=== PATIENT | female | born 1995 | race Caucasian/White ===

== ENCOUNTER 2017-10-04 10:31 | Emergency (ER) | payer MEDICAID ==
[2017-10-04] MEDS ORDERED: Acetaminophen TAB* 325 MG PO ONE (11:05)
--- NOTE | 2017-10-04 11:49 | RAD ---
Indication: Swelling and bruising at the LEFT foot following stubbing injury 2 days ago. Comparison: No relevant prior exams available on the [facility] for comparison. Technique: AP, lateral, and oblique views LEFT foot. Report: Small nondisplaced intra-articular fracture at the lateral base of the fifth middle phalanx. 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 Os tibiale externum accessory ossicle noted. Normal articular alignment and preserved joint spaces. Mild soft tissue swelling at the forefoot most prominent over the dorsal aspect. IMPRESSION: Small nondisplaced intra-articular fracture at the lateral base of the fifth middle phalanx.
--- NOTE | 2017-10-04 12:56 | ED ---
Casimiro Jansen Stephanie, scribed for Katya Delarosa MD on 10/04/17 at 1121 . Lower Extremity - HPI Summary HPI Summary: The pt is a 22 y/o F presenting to the ED with c/o pain over the 5th toe on the L foot that began on 10/02/17 s/p stubbing her toe without shoes, on a wooden platform at home. Symptoms include radiating pain down the L lateral side of her L foot and L 5th digit toe swelling and bruising. The pt states she took ibuprofen for swelling this morning at 05:30 before work with some relief of pain. The pt denies CP, SOB and N/V, abd pain. Pt states she takes control and is not . - History of Current Complaint Chief Complaint: EDExtremityLower Stated Complaint: LT FOOT INJURY Time Seen by Provider: 10/04/17 10:51 Hx Obtained From: Patient Mechanism Of Injury: Other - stubbing it against a platform Onset of Pain: Post Accident Onset/Duration: Days - 2 Severity Initially: Moderate Severity Currently: Moderate Pain Intensity: 6 Pain Scale Used: 0-10 Numeric Timing: Constant Location: Is Discrete @ - L foot and left toe Character Of Pain: Sharp Associated Signs And Symptoms: Positive: Swelling, Bruising Aggravating Factor(s): Ambulation Alleviating Factor(s): Nothing Able to Bear Weight: Yes - Allergies/Home Medications Allergies/Adverse Reactions: Allergies Allergy/AdvReac Type Severity Reaction Status Date / Time No Known Allergies Allergy Verified 09/06/16 12:11 PMH/Surg Hx/FS Hx/Imm Hx Endocrine/Hematology History: Reports: Hx Thyroid Disease - hypothyroid, Other Endocrine/Hematological Disorders - PCOS Denies: Hx Diabetes - Metformin for PCOS Cardiovascular History: Denies: Hx Hypertension, Hx Pacemaker/ICD Respiratory History: Denies: Hx Asthma GI History: Reports: Hx Gastroesophageal Reflux Disease Sensory History: Denies: Hx Contacts or Glasses, Hx Hearing Aid Opthamlomology History: Denies: Hx Contacts or Glasses Psychiatric History: Denies: Hx Panic Disorder - Surgical History Surgery Procedure, Year, and Place: 1997 TEAR DUCT SURGERY, [facility]. 2011 EXCISION OF PILONIODAL CYST, [facility]. 2011 TONSILLECTOMY, [facility] Hx Anesthesia Reactions: No Infectious Disease History: Yes Infectious Disease History: Denies: Traveled Outside the [place] in Last 30 Days - Family History Known Family History: Positive: Hypertension, Other - thyroid cancer, breast cancer - Social History Occupation: Employed Full-time Lives: With Family Alcohol Use: None Hx Substance Use: No Substance Use Type: Reports: None Hx Tobacco Use: No Smoking Status (MU): Never Smoked Tobacco Have You Smoked in the Last Year: No Review of Systems Negative: Fever Negative: Chest Pain Negative: Shortness Of Breath Negative: Vomiting, Nausea Positive: Other - 5th digit pain on the L foot, L lateral foot bruising and swelling Positive: Bruising Neurological: Negative Psychological: Normal All Other Systems Reviewed And Are Negative: Yes Physical Exam - Summary Physical Exam Summary: Appearance: well-appearing, moderate pain distress, obese Skin: Warm, color reflects adequate perfusion, bruising left foot and left 5th toe Head: Normal Head/Face inspection Eyes: Conjunctiva clear ENT: Normal inspection Neck: Supple, no nodes, no JVD. Respiratory: Lungs clear, Normal breath sounds, no respiratory distress Cardio: RRR, No murmur, pulses normal, brisk capillary refill Musculoskeletal: dark blood blister that is 0.5 cm on dorsum of the 5th toe and distal to the toe nail, no subungual hematoma, diffuse swelling of 5th toe, ecchymosis at the MTP of the 5th toe, that extends from the dorsum to the plantar surface. Tenderness on palpation to the 5th metatarsal, no bony tenderness of the ankle. ROM intact, sensation intact. No calf tenderness. Psychological: Normal Triage Information Reviewed: Yes Vital Signs On Initial Exam: Initial Vitals Temp Pulse Resp BP Pulse Ox 97.8 F 91 16 148/94 97 10/04/17 10:36 10/04/17 10:36 10/04/17 10:36 10/04/17 10:36 10/04/17 10:36 Vital Signs Reviewed: Yes Diagnostics - Vital Signs Vital Signs Temp Pulse Resp BP Pulse Ox 10/04/17 10:36 97.8 F 91 16 148/94 97 - Laboratory Lab Statement: Any lab studies that have been ordered have been reviewed, and results considered in the medical decision making process. - Radiology Foot XRay Radiology Interpretation Completed By: Radiologist - Small nondisplaced intra- articular fracture at the lateral base of the fifth middle phalanx. ED physician has reviewed this report. Re-Evaluation - Re-Evaluation First Eval Re-Evaluation Time: 12:34 Change: Improved - The pt states her pain is controlled. ED physician discussed plan of discharge with the pt and she understands. Lower Extremity Course/Dx - Course Course Of Treatment: The injured toe was wrapped with romario tape and the pt was given a post-op shoe to wear until seen by orthopedist. ED physician informed the pt to follow up with orthopedist in 2-7 days and to take ibuprofen for pain when needed. - Diagnoses Differential Diagnosis/HQI/PQRI: Positive: Contusion, Dislocation, Fracture ( Closed) Provider Diagnoses: Fractured toe Discharge - Sign-Out/Discharge Documenting (check all that apply): Discharge - Discharge Plan Condition: Stable Disposition: HOME Patient Education Materials: Toe Fracture (ED) Forms: *Work Release Referrals: Cyndi Martínez MD [Primary Care Provider] - Arsh Murillo MD [Medical Doctor] - 2 Days Additional Instructions: We have given you a copy of your XRay and report. Romario tape your 4th and 5th toes for 4-6 weeks. Wear the post-op shoe until seen by orthopedist. Follow up with orthopedist. Take ibuprofen when needed for pain. RETURN TO THE ER FOR ANY NEW OR WORSENING SYMPTOMS. - Billing Disposition and Condition Condition: STABLE Disposition: HOME The documentation as recorded by the Casimiro walton Stephanie accurately reflects the service I personally performed and the decisions made by , Katya Delarosa MD.
[2017-10-04 13:12] VITALS: BP 137/87
== END 2017-10-04 13:11 | disposition home or self-care (01) ==
LOC: ED 10:31
DX: S92.505A Nondisplaced unspecified fracture of left lesser toe(s), initial encounter for closed fracture (principal); W22.09XA Striking against other stationary object, initial encounter; Y92.009 Unspecified place in unspecified non-institutional (private) residence as the place of occurrence of the external cause; E03.9 Hypothyroidism, unspecified
CPT/HCPCS: 99282; A9270-GY

== ENCOUNTER 2019-03-25 07:14 | Emergency (ER) | payer BC, OTHER ==
[2019-03-25] MEDS ORDERED: NS 0.9% 1000 ML** 1,000 ML IV ONE (07:49)
[2019-03-25 08:07] LABS: ABS Eosinophils 0.1 10^3/ul (0-0.6); ABS Monocytes 0.6 10^3/ul (0-0.8); Eosinophil % 0.8 %; Hematocrit 38 % (35-47); Hemoglobin 13.1 g/dL (12.0-16.0); Lymphocyte % 44.1 %; Mean Corpuscular HGB Conc 34 g/dL (31-36); Mean Corpuscular Hemoglobin 29 pg (27-31); Mean Corpuscular Volume 84 fL (80-97); Mean Platelet Volume 8.5 fL (7.4-10.4); Nucleated Red Blood Cells % 0.1; Platelet Count 268 10^3/uL (150-450); Red Blood Count 4.51 10^6 /uL (3.70-4.87); Red Cell Distribution Width 13 % (10-15); White Blood Count 6.7 10^3/uL (3.5-10.8)
--- NOTE | 2019-03-25 08:11 | ED ---
GI/ HPI - HPI Summary HPI Summary: 23-year-old female presents with right-sided abdominal pain for the past week. She admits to some nausea but no vomiting. Has had a decreased appetite. States that she started having rectal bleeding for the past couple days. She admits to dizziness. She never had this before. No family history of UC or Crohn's. No fevers. Has had appendix removed. No diarrhea constipation. States that every time she has a bowel movement she has large amount of blood in the toilet. It is bright red blood. She admits to some urinary hesitancy. - History of Current Complaint Chief Complaint: EDGeneral Time Seen by Provider: 03/25/19 07:36 Stated Complaint: ABD PAIN PER PT Pain Intensity: 7 - Additional Pertinent History Primary Care Physician: CHRISTOPHER - Allergy/Home Medications Allergies/Adverse Reactions: Allergies Allergy/AdvReac Type Severity Reaction Status Date / Time No Known Allergies Allergy Verified 03/25/19 07:20 Home Medications: Home Medications Cyanocobalamin INJ * [Vitamin B12 INJ *] 1 dose IM MONTHLY 03/25/19 [History Confirmed 03/25/19] Levothyroxine TAB* [Synthroid 125 MCG TAB*] 1 tab PO QAM 03/25/19 [History Confirmed 03/25/19] Multivitamins/Minerals TAB* [Theragran/minerals TAB*] 1 tab PO DAILY 03/25/19 [ History Confirmed 03/25/19] metFORMIN* [Glucophage 500 MG TAB *] 500 mg PO DAILY 03/25/19 [History Confirmed 03/25/19] PMH/Surg Hx/FS Hx/Imm Hx Endocrine/Hematology History: Reports: Hx Thyroid Disease - hypothyroid, Other Endocrine/Hematological Disorders - PCOS Denies: Hx Diabetes - Metformin for PCOS Cardiovascular History: Denies: Hx Hypertension, Hx Pacemaker/ICD Respiratory History: Denies: Hx Asthma GI History: Reports: Hx Gastroesophageal Reflux Disease History: Reports: Hx Renal Disease - CURRENT UTI Sensory History: Denies: Hx Contacts or Glasses, Hx Hearing Aid Opthamlomology History: Denies: Hx Contacts or Glasses Neurological History: Reports: Hx Headaches - PAST WEEK USES OTC TYLENOL Psychiatric History: Denies: Hx Panic Disorder - Surgical History Surgery Procedure, Year, and Place: 1997 TEAR DUCT SURGERY, [facility]. 2011 EXCISION OF PILONIODAL CYST, [facility]. 2012 TONSILLECTOMY, [facility] Hx Anesthesia Reactions: No Infectious Disease History: No Infectious Disease History: Denies: Traveled Outside the [place] in Last 30 Days - Family History Known Family History: Positive: Hypertension, Other - thyroid cancer, breast cancer - Social History Alcohol Use: None Hx Substance Use: No Substance Use Type: Reports: None Hx Tobacco Use: No Smoking Status (MU): Never Smoked Tobacco Have You Smoked in the Last Year: No Review of Systems Negative: Fever Negative: Chest Pain Negative: Shortness Of Breath Positive: Abdominal Pain, Nausea, Other - rectal blood Positive: Weakness All Other Systems Reviewed And Are Negative: Yes Physical Exam Triage Information Reviewed: Yes Vital Signs On Initial Exam: Initial Vitals Temp Pulse Resp BP Pulse Ox 98.6 F 88 16 166/104 98 03/25/19 07:16 03/25/19 07:16 03/25/19 07:16 03/25/19 07:16 03/25/19 07:16 Vital Signs Reviewed: Yes Appearance: Positive: Well-Appearing Skin: Positive: Warm, Dry Head/Face: Positive: Normal Head/Face Inspection Eyes: Positive: Normal, Conjunctiva Clear ENT: Positive: Pharynx normal Respiratory/Lung Sounds: Positive: Clear to Auscultation, Breath Sounds Present Cardiovascular: Positive: Normal, RRR Abdomen Description: Positive: Soft, Other: - tenderness in RLQ and RUQ, hemorrhoids present, Bowel Sounds: Positive: Present Musculoskeletal: Positive: Normal Neurological: Positive: Normal Psychiatric: Positive: Normal Diagnostics - Vital Signs Vital Signs Temp Pulse Resp BP Pulse Ox 03/25/19 07:16 98.6 F 88 16 166/104 98 - Laboratory Result Diagrams: 03/25/19 07:56 03/25/19 07:56 Lab Statement: Any lab studies that have been ordered have been reviewed, and results considered in the medical decision making process. - CT abd CT Interpretation Completed By: Radiologist Summary of CT Findings: IMPRESSION: No evidence of bowel obstruction. Findings consistent with mesenteric adenitis. Appendix is not visualized. - Ultrasound No standard instances Ultrasound Interpretation Completed By: Radiologist Summary of Ultrasound Findings: IMPRESSION: UNREMARKABLE GALLBLADDER WITH NO INTRA OR EXTRAHEPATIC BILIARY DUCTAL DILATATION Re-Evaluation - Re-Evaluation First Eval Comment: discussed ultrasound results, will get CT GIGU Course/Dx - Course Course Of Treatment: 23-year-old female presents with right-sided abdominal pain for the past week. She admits to some nausea but no vomiting. Has had a decreased appetite. States that she started having rectal bleeding for the past couple days. She admits to dizziness. She never had this before. No family history of UC or Crohn's. No fevers. Has had appendix removed. No diarrhea constipation. States that every time she has a bowel movement she has large amount of blood in the toilet. It is bright red blood. She admits to some urinary hesitancy. On exam tenderness in right upper and right lower quadrant. Hemorrhoids present. Does have some dark red tinged stool occult positive. wbc normal. H&H normal. CRP normal. Gallbladder ultrasound normal. transvaginal u/s normal. urine potential uti. will treat for uti with augmentin. CT shows mesenteric adenitis. patient vitals and lab work is stable here so will have follow up with GI about rectal bleed. patient understand and agrees with plan. - Diagnoses Differential Diagnoses - Female: Gastroenteritis (Viral), Gastroenteritis ( Bacterial), Irritable Bowel Syndrome Provider Diagnoses: UTI (urinary tract infection), Mesenteric adenitis, Rectal bleed, Hemorrhoids Discharge ED - Sign-Out/Discharge Documenting (check all that apply): Patient Departure Patient Received Moderate/Deep Sedation with Procedure: No - Discharge Plan Condition: Good Disposition: HOME Prescriptions: Amoxicillin/Clavulanate TAB* [Augmentin TAB 500 mg*] 500 mg PO BID #9 tab Ondansetron ODT TAB* [Zofran 4 MG Odt TAB*] 4 mg PO Q6H PRN #16 tab.odt PRN Reason: Nausea Patient Education Materials: Urinary Tract Infection in Women (ED), Mesenteric Adenitis (ED) Referrals: Cyndi Martínez MD [Primary Care Provider] - Muna Yousif MD [Medical Doctor] - Additional Instructions: take augmentin twice a day for 5 days take zofran every 6 hours as needed for nausea take tyenlol or ibuprofen every 6 hours as needed for pain follow up with GI if no improvement in rectal bleeding Return to ED if develop any new or worsening symptoms - Billing Disposition and Condition Condition: GOOD Disposition: Home
[2019-03-25 08:21] LABS: Albumin 4.4 g/dL (3.2-5.2); Anion Gap 10 mmol/L (2-11); CO2 Carbon Dioxide 22 mmol/L (22-32); Calcium 9.5 mg/dL (8.6-10.3); Chloride 106 mmol/L (101-111); Potassium 3.5 mmol/L (3.5-5.0); Sodium 138 mmol/L (135-145)
[2019-03-25 08:27] LABS: ALT 34 U/L (7-52); AST 35 U/L (13-39); Albumin/Globulin Ratio 1.4 (1-3); Alkaline Phosphatase 75 U/L (34-104); BUN/Creatinine Ratio 17.2 (8-20); Blood Urea Nitrogen 11 mg/dL (6-24); EGFR African American 141.7 (>60); EGFR Non-African American 117.1 (>60); Globulin 3.1 g/dL (2-4); Glucose 94 mg/dL (70-100); Total Protein 7.5 g/dL (6.4-8.9)
[2019-03-25] MEDS ORDERED: Ondansetron INJ* 2 MG/ML VIAL IV ONE ×2 (08:38→10:41)
[2019-03-25 08:54] LABS: HCG Pregnancy < 0.60 mIU/mL
[2019-03-25] MEDS ORDERED: Iodixanol* (CONTRAST) 320 MG/ML 100 ML SDV IV ONE (09:19)
[2019-03-25 09:33] LABS: Urine Appearance Clear; Urine Bacteria Absent (Absent); Urine Bilirubin Negative (Negative); Urine Blood 3+ (Negative); Urine Color Straw; Urine Glucose Negative (Negative); Urine Ketones Negative (Negative); Urine Nitrite Negative (Negative); Urine Protein Negative (Negative); Urine Red Blood Cell 3+(>10/hpf) (Absent); Urine Specific Gravity 1.009 (1.010-1.030); Urine Squamous Epithelial Cell Present (Absent); Urine Urobilinogen Negative (Negative); Urine White Blood Cell 2+(11-20/hpf) (Absent)
[2019-03-25] MEDS ORDERED: Amoxicillin/Clavulanate TAB* 500 MG PO ONE (11:32)
[2019-03-25 11:46] VITALS: BP 130/101
== END 2019-03-25 11:43 | disposition home or self-care (01) ==
LOC: ED 07:14
DX: N39.0 Urinary tract infection, site not specified (principal); I88.0 Nonspecific mesenteric lymphadenitis; K62.5 Hemorrhage of anus and rectum; K64.9 Unspecified hemorrhoids; E03.9 Hypothyroidism, unspecified; K21.9 Gastro-esophageal reflux disease without esophagitis; Z79.84 Long term (current) use of oral hypoglycemic drugs; Z79.899 Other long term (current) drug therapy
CPT/HCPCS: 36415; 74177; 76705; 76830; 80053; 81003; 81015; 82272; 83605; 83690; 83735; 84702; 85025; 86140; 87086; 96361; 96374; 96376; 99282; A9270-GY; J2405; Q9967

== ENCOUNTER 2019-05-24 03:56 | Emergency (ER) | payer BC ==
[2019-05-24] MEDS ORDERED: Meclizine TAB* 12.5 MG PO ONE (04:30)
--- NOTE | 2019-05-24 04:30 | ED ---
GI/ HPI - HPI Summary HPI Summary: This patient is a 23 year old F presenting to [facility] with a chief complaint of sudden onset of near-syncope since today 05/24/19 at 0330. Symptoms aggravated by nothing. Symptoms alleviated by nothing. 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 Pt reports usual abdominal pain, nausea, and vomiting for a some time but the black out/pass out feeling happened for the first time. Denies hx syncope. Pt reports currently still dizzy, room spinning, vision blurry/blotchy. Pt reports sometimes she gets dizzy before puke but after puke it usually goes away. Pt reports rectal bleeding starting in March 2019 and last week traces of blood in puke and constipation for 4 days. Pt reports she has received a colonoscopy and upper scope but GI doctors do not know what her medical issue is. Upper scope 2 days ago led to conclusion of possible gallbladder issues due to location of pain. Denies prior US being taken for gallbladder. - History of Current Complaint Stated Complaint: DIZZINESS PER PT Hx Obtained From: Patient Onset/Duration: Started Minutes Ago, Still Present Timing: Constant Pain Intensity: 0 Associated Signs and Symptoms: Positive: Dizziness, Nausea, Diaphoresis, Other: - loss of hearing,room spinning, vision blurry/blotchy, and tingling Aggravating Factor(s): Nothing Alleviating Factor(s): Nothing - Additional Pertinent History Primary Care Physician: [id number] - Allergy/Home Medications Allergies/Adverse Reactions: Allergies Allergy/AdvReac Type Severity Reaction Status Date / Time No Known Allergies Allergy Verified 05/24/19 04:08 Home Medications: Home Medications Levothyroxine TAB* [Synthroid TAB*] 137 mcg PO DAILY 05/24/19 [History Confirmed 05/24/19] Omeprazole 20 mg PO DAILY 05/24/19 [History Confirmed 05/24/19] PMH/Surg Hx/FS Hx/Imm Hx Endocrine/Hematology History: Reports: Hx Thyroid Disease - hypothyroid, Other Endocrine/Hematological Disorders - PCOS Denies: Hx Diabetes - Metformin for PCOS Cardiovascular History: Denies: Hx Hypertension, Hx Pacemaker/ICD Respiratory History: Denies: Hx Asthma GI History: Reports: Hx Gastroesophageal Reflux Disease History: Reports: Hx Renal Disease - CURRENT UTI Sensory History: Denies: Hx Contacts or Glasses, Hx Hearing Aid Opthamlomology History: Denies: Hx Contacts or Glasses Neurological History: Reports: Hx Headaches - PAST WEEK USES OTC TYLENOL Psychiatric History: Denies: Hx Panic Disorder - Surgical History Surgery Procedure, Year, and Place: 1997 TEAR DUCT SURGERY, [facility]. 2011 EXCISION OF PILONIODAL CYST, [facility]. 2012 TONSILLECTOMY, [facility] Hx Anesthesia Reactions: No Infectious Disease History: No Infectious Disease History: Denies: Traveled Outside the [place] in Last 30 Days - Family History Known Family History: Positive: Hypertension, Other - thyroid cancer, breast cancer - Social History Alcohol Use: Rare Hx Substance Use: No Substance Use Type: Reports: None Hx Tobacco Use: No Smoking Status (MU): Never Smoked Tobacco Have You Smoked in the Last Year: No Review of Systems Positive: Skin Diaphoresis - cold Positive: Blurred Vision - vision blurry/blotchy Positive: Other - loss of hearing Positive: Abdominal Pain, Vomiting, Nausea, Other - rectal bleeding, constipation Neurological: Other - dizziness, room spinning, tingling All Other Systems Reviewed And Are Negative: Yes Physical Exam - Summary Physical Exam Summary: Appearance: Well-appearing, Well-nourished, lying in bed comfortably Skin: Warm, dry, no obvious rash Eyes: sclera anicteric, no conjunctival pallor ENT: mucous membranes moist, pharynx appears normal Neck: Supple, nontender Respiratory: Clear to auscultation, no signs of respiratory distress Cardiovascular: Normal S1, S2. No murmurs. Normal distal pulses in tibial and radial bilaterally. Abdomen: Soft, nontender, normal active bowel sounds present Musculoskeletal: Normal, Strength/ROM Intact Neurological: A&Ox3, awake and alert, mentation is normal, speech is fluent and appropriate, normal Romberg, no nystagmus, no truncal ataxia Psychiatric: affect is normal, does not appear anxious or depressed Triage Information Reviewed: Yes Vital Signs On Initial Exam: Initial Vitals Temp Pulse Resp BP Pulse Ox 98.6 F 80 18 156/88 98 05/24/19 03:59 05/24/19 03:59 05/24/19 03:59 05/24/19 03:59 05/24/19 03:59 Vital Signs Reviewed: Yes Procedures - Sedation Patient Received Moderate/Deep Sedation with Procedure: No Diagnostics - Vital Signs Vital Signs Temp Pulse Resp BP Pulse Ox 05/24/19 04:12 85 19 98 05/24/19 04:11 78 30 152/102 97 05/24/19 03:59 98.6 F 80 18 156/88 98 - Laboratory Lab Statement: Any lab studies that have been ordered have been reviewed, and results considered in the medical decision making process. - EKG 0400 Cardiac Rate: NL - 80 BPM Summary of EKG Findings: NSR at 80 BPM, P waves, QRS complex, and T waves are within normal limits, T waves and intervals are normal, no ischemic changes. This is a normal EKG. GIGU Course/Dx - Course Course Of Treatment: This patient is a 23 year old F presenting to [facility] with a chief complaint of sudden onset of near-syncope since today 05/24/19 at 0330. 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 Pt reports usual abdominal pain, nausea, and vomiting for a sometime but the black out/pass out feeling happened for the first time. Pt reports currently still dizzy, room spinning, vision blurry/blotchy. Physical Exam Findings reveals no abnormalities including normal Romberg, no nystagmus, no Truncal ataxia. Pt was given 25 mg Meclizine Hcl PO in the ED course. An EKG taken at 0400 reveals NSR at 80 BPM, P waves, QRS complex, and T waves are within normal limits, T waves and intervals are normal, no ischemic changes. This is a normal EKG. Patient will be discharged with dx peripheral vertigo with prescription for 25 mg Meclizine PO and follow up from Dr. Martínez, PCP. The patient is agreeable with this plan. - Diagnoses Provider Diagnoses: Peripheral vertigo Discharge ED - Sign-Out/Discharge Documenting (check all that apply): Patient Departure - discharge - Discharge Plan Condition: Stable Disposition: HOME Prescriptions: Meclizine TAB* [Antivert 12.5 TAB*] 25 mg PO TID PRN #20 tab PRN Reason: Dizziness Patient Education Materials: Benign Paroxysmal Positional Vertigo (ED), Dizziness (ED) Referrals: Cyndi Martínez MD [Medical Doctor] - If Needed - Billing Disposition and Condition Condition: STABLE Disposition: Home - Attestation Statements Document Initiated by Monique: Yes Documenting Scribe: Val Carranza Provider For Whom Monique is Documenting (Include Credential): Dr. Phillip Villanueva MD Scribe Attestation: IVal, scribed for Dr. Phillip Villanueva MD on 05/26/19 at 1833. Scribe Documentation Reviewed: Yes Provider Attestation: The documentation as recorded by the Val walton accurately reflects the service I personally performed and the decisions made by me, Dr. Phillip Villanueva MD Status of Scribe Document: Viewed
[2019-05-24 05:02] VITALS: BP 137/94
== END 2019-05-24 04:36 | disposition home or self-care (01) ==
LOC: ED 03:56
DX: H81.399 Other peripheral vertigo, unspecified ear (principal); E03.9 Hypothyroidism, unspecified; K21.9 Gastro-esophageal reflux disease without esophagitis; Z79.890 Hormone replacement therapy; Z79.899 Other long term (current) drug therapy
CPT/HCPCS: 93005; 99282; A9270-GY